=== PATIENT | male | born 1935 | race Hispanic/Latino ===

== ENCOUNTER 2022-03-25 09:26 | Inpatient (IN) | payer MEDICARE, BC ==
[2022-03-25 10:36] LABS: INR-International Normal Ratio 1.3; PTT 37.9 sec (22.9-36.1); Prothrombin Time 16.5 sec (12.0-14.7)
[2022-03-25 10:43] LABS: ALT (SGPT) 21 U/L (8-55); AST (SGOT) 46 U/L (5-34); Alkaline Phosphatase 99 U/L (40-110); Anion Gap 21 mmol/L (10-20); BUN (Urea Nitrogen) 33 mg/dL (8.4-25.7); Bilirubin, Total 1.7 mg/dL (0.2-1.2); CK (CPK) 1053 U/L (30-200); Calc. Creatinine Clearance 0 mL/min (70-130); Calcium 9.1 mg/dL (7.8-10.44); Carbon Dioxide 17 mmol/L (23-31); Chloride 103 mmol/L (98-107); Globulin 3.6 g/dL (2.4-3.5); Glucose 97 mg/dL (83-110); Potassium 4.6 mmol/L (3.5-5.1); Protein, Total 6.6 g/dL (5.8-8.1); Sodium 136 mmol/L (136-145)
[2022-03-25 10:51] LABS: #Basophils 0.1 thou/uL (0.0-0.2); #Lymphocytes 0.4 thou/uL (1.20-3.40); #Monocytes 0.8 thou/uL (0.11-0.59); #Neutrophils 14.4 thou/uL (1.40-6.50); %Basophils 0.4 % (0.0-1.0); %Eosinophils 0.1 % (0.0-10.0); %Lymphocytes 2.4 % (21.0-51.0); %Monocytes 5.1 % (0.0-10.0); %Neutrophils 92.1 % (42.0-75.0); Band 18 % (5-11); Hemoglobin 11.8 g/dL (14.0-18.0); Lymphocytes 4 % (21-51); MDiff Complete? YES; Macrocytosis SLIGHT = 6-15 cells (100X) (0-5/hpf); Mean Corpuscular HGB CONC 30.9 g/dL (32.0-36.0); Mean Corpuscular Hemoglobin 34.5 pg (27.0-31.0); Mean Platelet Volume 9.2 fL (7.4-10.4); Monocytes 6 % (0-10); Neutrophil 72 % (42-75); Platelet Count 112 thou/uL (130-400); Platelet Morphology Comment Appears Decreased; Polychromasia SLIGHT = 2-3 cells (100X) (0-2/hpf); RBC Distribution Width 14.4 % (11.5-14.5); Red Blood Cell (RBC) Count 3.41 mill/uL (4.70-6.10); White Blood Cell (WBC) Count 15.7 thou/uL (4.8-10.8)
[2022-03-25 11:15] LABS: CKMB 10.9 ng/mL (0-6.6)
[2022-03-25 11:40] LABS: Bacteria/HPF 4+ HPF (None Seen); Bilirubin Negative (Negative); Blood, Urine 3+ (Negative); Glucose, Urine (Dipstick) Normal (Negative); Ketone, Urine 10 mg/dL (Negative); Leukocyte 500 Leu/uL (Negative); Nitrite Negative (Negative); Protein, Urine (Dipstick) 300 mg/dL (Neg-Trace); RBC/HPF Greater than 50 HPF (0-3); Specific Gravity, Urine 1.024 (1.002-1.036); Squamous Epithelial 0-3 HPF (0-3)
[2022-03-25 11:54] LABS: Clarity Turbid (Clear); Transitional Epithelial 0-3 HPF (None Seen); WBC/HPF 21-50 HPF (0-3)
[2022-03-25 13:18] LABS: Troponin I 0.065 ng/mL (< 0.028)
[2022-03-25] MEDS ORDERED: Acetaminophen 325 MG TAB PO PRN (13:31)
[2022-03-25] MEDS ORDERED: Vancomycin 1 GM/200 ML BAG ONE (14:00)
[2022-03-25] MEDS ORDERED: Cefepime 1 GM VIAL ONE (14:00)
[2022-03-25] MEDS: Sodium Chloride 0.9% 1,000 ML IV SCH (16:04)
[2022-03-25 16:22] LABS: Lactic Acid 1.5 mmol/L (0.5-2.2)
[2022-03-25 17:03] VITALS: BMI 12.3
[2022-03-26] MEDS: Sodium Chloride 0.9% 1,000 ML IV SCH ×2 (01:02→02:43)
[2022-03-26] MEDS: Cefepime 1 GM in Sodium Chloride 0.9% 100 ML IVPB SCH ×2 (02:43→14:31)
[2022-03-26 04:12] LABS: #Monocytes 0.6 thou/uL (0.11-0.59); #Neutrophils 11.7 thou/uL (1.40-6.50); %Basophils 0.2 % (0.0-1.0); %Eosinophils 0.1 % (0.0-10.0); %Lymphocytes 7.5 % (21.0-51.0); %Monocytes 4.6 % (0.0-10.0); %Neutrophils 87.7 % (42.0-75.0); Hemoglobin 10.3 g/dL (14.0-18.0); Mean Corpuscular HGB CONC 31.2 g/dL (32.0-36.0); Mean Platelet Volume 9.9 fL (7.4-10.4); Platelet Count 73 thou/uL (130-400); RBC Distribution Width 14.6 % (11.5-14.5); Red Blood Cell (RBC) Count 2.96 mill/uL (4.70-6.10); White Blood Cell (WBC) Count 13.3 thou/uL (4.8-10.8)
[2022-03-26 04:27] LABS: Anion Gap 16 mmol/L (10-20); BUN (Urea Nitrogen) 32 mg/dL (8.4-25.7); CK (CPK) 975 U/L (30-200); Calc. Creatinine Clearance 16 mL/min (70-130); Carbon Dioxide 19 mmol/L (23-31); Chloride 109 mmol/L (98-107); Potassium 4.1 mmol/L (3.5-5.1); Sodium 140 mmol/L (136-145)
[2022-03-26 04:36] LABS: Glucose 50 mg/dL (83-110)
[2022-03-26] MEDS ORDERED: Dextrose 5% in Water 1,000 ML IV PRN (05:08)
[2022-03-26] MEDS ORDERED: Dextrose 50% Abboject 50 ML SYRINGE SLOW IVP PRN (05:08)
[2022-03-26] MEDS: Dextrose 5 %-0.45 % NaCl 1,000 ML IV SCH ×2 (05:36→17:16)
[2022-03-27] MEDS: Cefepime 1 GM in Sodium Chloride 0.9% 100 ML IVPB SCH ×2 (02:16→14:01)
[2022-03-27] MEDS: Dextrose 5 %-0.45 % NaCl 1,000 ML IV SCH ×3 (02:21→22:41)
[2022-03-27] MEDS: Cyanocobalamin (Vitamin B-12) 1,000 MCG TAB PO SCH (09:42)
[2022-03-27] MEDS: Multivit, Therapeutic 1 TAB PO SCH (09:42)
[2022-03-27] MEDS: Folic Acid 1 MG TAB PO SCH (09:42)
[2022-03-27] MEDS ORDERED: Magnevist 469MG/ML 20 ML VIAL ONE (11:19)
[2022-03-27 13:36] LABS: Hemoglobin 10.8 g/dL (14.0-18.0); Mean Corpuscular HGB CONC 31.4 g/dL (32.0-36.0); Mean Corpuscular Hemoglobin 34.7 pg (27.0-31.0); Mean Platelet Volume 10.9 fL (7.4-10.4); Platelet Count 33 thou/uL (130-400); RBC Distribution Width 14.5 % (11.5-14.5); Red Blood Cell (RBC) Count 3.11 mill/uL (4.70-6.10); White Blood Cell (WBC) Count 10.1 thou/uL (4.8-10.8)
[2022-03-27 13:47] LABS: Anion Gap 9 mmol/L (10-20); BUN (Urea Nitrogen) 18 mg/dL (8.4-25.7); Calc. Creatinine Clearance 23 mL/min (70-130); Carbon Dioxide 23 mmol/L (23-31); Chloride 107 mmol/L (98-107); Glucose 102 mg/dL (83-110); Sodium 136 mmol/L (136-145)
[2022-03-28] MEDS: Cefepime 1 GM in Sodium Chloride 0.9% 100 ML IVPB SCH ×3 (01:56→21:08)
[2022-03-28 05:41] LABS: Anion Gap 7 mmol/L (10-20); BUN (Urea Nitrogen) 14 mg/dL (8.4-25.7); Calc. Creatinine Clearance 24 mL/min (70-130); Calcium 7.6 mg/dL (7.8-10.44); Carbon Dioxide 25 mmol/L (23-31); Chloride 110 mmol/L (98-107); Glucose 112 mg/dL (83-110); Sodium 139 mmol/L (136-145)
[2022-03-28 05:47] LABS: Potassium 2.7 mmol/L (3.5-5.1)
[2022-03-28] MEDS ORDERED: Electrolyte Replacement Protocol FS PRN (06:45)
[2022-03-28 06:47] LABS: Magnesium 1.8 mg/dL (1.6-2.6)
[2022-03-28] MEDS: Dextrose 5 %-0.45 % NaCl 1,000 ML IV SCH ×3 (07:15→21:07)
[2022-03-28] MEDS ORDERED: Magnesium 2 GM/50 ML(in water) 2 GM in Premix Bag 1 BAG IVPB SCH (09:00)
[2022-03-28] MEDS: Potassium Chloride 40 MEQ in Sodium Chloride 0.9% 250 ML 250 ML IVPB SCH ×2 (09:02→12:37)
[2022-03-28] MEDS: Multivit, Therapeutic 1 TAB PO SCH (11:19)
[2022-03-28] MEDS: Folic Acid 1 MG TAB PO SCH (11:19)
[2022-03-28] MEDS: Cyanocobalamin (Vitamin B-12) 1,000 MCG TAB PO SCH (11:19)
[2022-03-29] MEDS: Cefepime 1 GM in Sodium Chloride 0.9% 100 ML IVPB SCH (09:25)
[2022-03-29] MEDS: Dextrose 5 %-0.45 % NaCl 1,000 ML IV SCH ×3 (09:32→21:33)
[2022-03-29] MEDS: Cyanocobalamin (Vitamin B-12) 1,000 MCG TAB PO SCH (11:09)
[2022-03-29] MEDS: Folic Acid 1 MG TAB PO SCH (11:09)
[2022-03-29] MEDS: Multivit, Therapeutic 1 TAB PO SCH (11:10)
[2022-03-29 13:51] LABS: Potassium 4.2 mmol/L (3.5-5.1)
[2022-03-29] MEDS: Morphine 2 MG/ML VIAL SLOW IVP PRN (16:30)
[2022-03-29] MEDS ORDERED: Sodium Chloride 0.9% 500 ML IVPB SCH (22:00)
[2022-03-30] MEDS ORDERED: Sodium Chloride 0.9% 500 ML IVPB SCH (05:45)
[2022-03-30 06:02] LABS: Anion Gap 10 mmol/L (10-20); BUN (Urea Nitrogen) 14 mg/dL (8.4-25.7); Calc. Creatinine Clearance 22 mL/min (70-130); Calcium 7.2 mg/dL (7.8-10.44); Carbon Dioxide 17 mmol/L (23-31); Chloride 112 mmol/L (98-107); Glucose 104 mg/dL (83-110); Potassium 4.5 mmol/L (3.5-5.1); Sodium 134 mmol/L (136-145)
[2022-03-30 06:07] LABS: Phosphorus 1.8 mg/dL (2.3-4.7)
[2022-03-30] MEDS ORDERED: Magnesium 2 GM/50 ML(in water) 2 GM in Premix Bag 1 BAG IVPB SCH (06:30)
[2022-03-30] MEDS ORDERED: Potassium Phosphate 15 MMOL in Sodium Chloride 0.9% 100 ML IVPB SCH (08:00)
[2022-03-30] MEDS: Morphine 2 MG/ML VIAL SLOW IVP PRN ×2 (09:17→15:15)
[2022-03-30] MEDS: Folic Acid 1 MG TAB PO SCH (09:46)
[2022-03-30] MEDS: Cyanocobalamin (Vitamin B-12) 1,000 MCG TAB PO SCH (09:46)
[2022-03-30] MEDS: Multivit, Therapeutic 1 TAB PO SCH (09:47)
[2022-03-30] MEDS: Dextrose 5 %-0.45 % NaCl 1,000 ML IV SCH (14:15)
[2022-03-31] MEDS: Dextrose 5 %-0.45 % NaCl 1,000 ML IV SCH (01:39)
[2022-03-31 08:23] VITALS: BP 91/62; TEMP 97.7
[2022-03-31] MEDS: Folic Acid 1 MG TAB PO SCH (10:18)
[2022-03-31] MEDS: Multivit, Therapeutic 1 TAB PO SCH (10:18)
[2022-03-31] MEDS: Cyanocobalamin (Vitamin B-12) 1,000 MCG TAB PO SCH (10:18)
[2022-03-31] MEDS: Morphine 2 MG/ML VIAL SLOW IVP PRN (10:21)
== END 2022-03-31 11:34 | disposition hospice, home (50) | DRG 564 ==
LOC: ERS 09:26 → 2NO 13:34 → MSONC 03-27 16:45
PROVIDERS: ADMIT Internal Medicine; ATTEND Internal Medicine
DX: T79.6XXA Traumatic ischemia of muscle, initial encounter (principal); Z51.5 Encounter for palliative care; Z66 Do not resuscitate; Z20.822 Contact with and (suspected) exposure to COVID-19; W18.30XA Fall on same level, unspecified, initial encounter; G93.41 Metabolic encephalopathy; E43 Unspecified severe protein-calorie malnutrition; N17.9 Acute kidney failure, unspecified; E87.2 Acidosis; Z68.1 Body mass index [BMI] 19.9 or less, adult; R64 Cachexia; N21.0 Calculus in bladder; R13.12 Dysphagia, oropharyngeal phase; C67.9 Malignant neoplasm of bladder, unspecified; E16.2 Hypoglycemia, unspecified; Z79.899 Other long term (current) drug therapy; Z79.890 Hormone replacement therapy; Z79.01 Long term (current) use of anticoagulants
CPT/HCPCS: 36415; 36416; 70450; 70553; 71045; 72125; 72170; 74176; 80048; 80053; 81003; 81015; 82550; 82553; 83605; 83735; 84100; 84132; 84484; 85025; 85027; 85610; 85730; 87040; 87086; 93005; 93306; 95816; 95819; 95957; 96361; 96365; 96375; A9579; J0692; J2270; J3370; J3475; J3480; J3490; J7030; J7042; J7050; U0003; U0005